=== PATIENT | female | born 1950 | race Two or more races ===

== ENCOUNTER 2022-09-01 16:40 | Inpatient (IN) | payer MEDICAID, MEDICARE ==
[~2022-09-01] VITALS: Ht 152.4 cm; Wt 66.3 kg
[2022-09-01] MEDS ORDERED: methylPREDNISolone SOD SUCC 125 MG/2 ML VIAL IV ONE (17:00)
[2022-09-01] MEDS ORDERED: ALBUTEROL SULFATE 2.5 MG/3 ML NEBU NEB ONE (17:00)
[2022-09-01] MEDS ORDERED: IPRATROPIUM BROMIDE 0.5 MG/2.5 ML NEBU NEB ONE (17:00)
[2022-09-01] MEDS ORDERED: MAGNESIUM SULFATE 2 GM in IV DEXTROSE 5% 100 ML IV ONE (17:00)
[2022-09-01] MEDS ORDERED: ALBUTEROL SULFATE 2.5 MG/3 ML NEBU ONE (17:01)
[2022-09-01] MEDS ORDERED: IPRATROPIUM BROMIDE 0.5 MG/2.5 ML NEBU ONE (17:02)
[2022-09-01 17:09] LABS: MEAN CORPUSCULAR HEMOGLOBIN 29.5 uug (24.7-32.8); MEAN CORPUSCULAR VOLUME 89.3 fL (75.5-95.3); PLATELET COUNT (AUTO) 282 K/uL (179-408)
[2022-09-01] MEDS ORDERED: MAGNESIUM SULFATE 1 GM/2 ML VIAL ONE (17:11)
[2022-09-01] MEDS ORDERED: MAGNESIUM SULFATE/D5W 100 ML ONE (17:12)
[2022-09-01] MEDS ORDERED: methylPREDNISolone SOD SUCC 125 MG/2 ML VIAL ONE (17:12)
[2022-09-01] MEDS ORDERED: ATOR40TA PO (17:21)
[2022-09-01] MEDS ORDERED: ALBU0.63 NEB (17:21)
[2022-09-01] MEDS ORDERED: AZITHROMYCIN IV 500 MG in IV DEXTROSE 5% 250 ML IV ONE (17:30)
[2022-09-01] MEDS ORDERED: CEFTRIAXONE 1 G in IV DEXTROSE 5% 50 ML IV ONE (17:30)
--- NOTE | 2022-09-01 17:36 | NUR ---
PT IS IN ROOM #2A. DR CONTI EVALUATED THE PT.
[2022-09-01] MEDS ORDERED: AZITHROMYCIN 500MG/ D5W 250ML IVPB **ER PYXIS ONLY IV ONE (17:57)
[2022-09-01] MEDS ORDERED: CEFTRIAXONE /D5W 50ML IVPB **ER PYXIS IV ONE (17:58)
[2022-09-01 18:15] LABS: BILIRUBIN,DIRECT 0.1 mg/dL (0.0-0.2); BILIRUBIN,TOTAL 0.2 mg/dL (0.2-1.0); CREATININE 0.9 mg/dL (0.6-1.3); POTASSIUM 3.7 mmol/L (3.5-5.1); TOTAL PROTEIN, SERUM 7.1 g/dL (6.4-8.2)
--- NOTE | 2022-09-01 19:34 | NUR ---
Patient Aox4, VSS. O2 Sat 94% on 2L of Oxygen via nasal cannula. Patient's daughter at bedside.
--- NOTE | 2022-09-01 19:45 | NUR ---
Called third floor to claims director report. RN not ready, waiting for call back.
--- NOTE | 2022-09-01 19:46 | NUR ---
Patient ambulated to the bathroom standby assist. Large yellow void. Tolerated well.
--- NOTE | 2022-09-01 20:44 | NUR ---
Report given to Destiny HILL
[2022-09-01] MEDS ORDERED: ALBUTEROL SULFATE 1.25 MG/3 ML NEBU NEB PRN (20:45)
[2022-09-01] MEDS ORDERED: REMEDY ESSENTIAL ZINC PASTE 113 GM TP PRN (20:45)
[2022-09-01] MEDS ORDERED: MAGNESIUM HYDROXIDE 30 ML LIQUID UDC PO PRN (20:45)
--- NOTE | 2022-09-01 20:59 | NUR ---
Patient ambulated to the bathroom 1x assist. Voided large urine.
[2022-09-01 21:15] VITALS: BP 139/74
--- NOTE | 2022-09-01 21:15 | NUR ---
Admitted a 72 years old female with Dx of COPD Exacerbation. Patient AAOx4. Mainly Hungarian speaking. Can understand and speak little Maori. 2 daughter present upon admission and translated for this nurse. Patient denies any pain. No complain of SOB at this time. On O2 at 2LPM via NC in place. O2 sat at 93%. Patient reported SOB with minimal exertion. Also noted with productive cough and able to expectorate thin phlegm. IV site on right FA and DELON intact and patent. NSR on tele with HR of 87/min. Routine admission care done. Plan of care initiated. Safety measure initiated and call light within reached. Continue to monitor.
--- NOTE | 2022-09-01 21:18 | NUR ---
Patient taken to third floor room 316 via gurney with personal belongings. Patient in stable condition, no signs of distress. Destiny RN aware of patients arrival.
[2022-09-01] MEDS: methylPREDNISolone SOD SUCC 40 MG/ML VIAL IV SCH (21:55)
[2022-09-01] MEDS: ENOXAPARIN SODIUM 40 MG/0.4 ML DISP.SYRIN SQ SCH (21:56)
[2022-09-01] MEDS: NICOTINE 14 MG/24HR PATCH TD SCH (22:12)
[2022-09-02 04:32] VITALS: BP 136/62
[2022-09-02] MEDS: ALBUTEROL SULFATE 1.25 MG/3 ML NEBU NEB PRN (04:39)
[2022-09-02] MEDS: IPRATROPIUM BROMIDE 0.5 MG/2.5 ML NEBU NEB PRN (04:39)
[2022-09-02] MEDS: methylPREDNISolone SOD SUCC 40 MG/ML VIAL IV SCH ×3 (05:06→21:05)
--- NOTE | 2022-09-02 05:55 | NUR ---
In no acute distress. Remains on O2 at 2LPM via NC. Breathing TX provided by RT this AM. NSR on tele with HR of 84/min. Needs attended to and met. Safety measure maintained and call light within reached.
[2022-09-02 06:57] LABS: HEMATOCRIT 36.2 % (31.2-41.9); MEAN CORPUSCULAR HEMOGLOBIN 29.4 uug (24.7-32.8); MEAN CORPUSCULAR VOLUME 88.3 fL (75.5-95.3); PLATELET COUNT (AUTO) 397 K/uL (179-408)
--- NOTE | 2022-09-02 08:00 | NUR ---
AWAKE ALERT AND ORIENTED X3 DENIES PAIN OR RESPIRATORY DISTRESS. CONTINUE WITH 02 AT 2L NC SATURATING 95%. SR ON MONITOR
[2022-09-02 08:47] LABS: CARBON DIOXIDE 25 mmol/L (21-32); CHLORIDE 103 mmol/L (98-107); GLUCOSE 161 mg/dL (74-106)
[2022-09-02 08:48] LABS: CHOLESTEROL 220 mg/dL (<200); HDL CHOLESTEROL 113 mg/dL (40-60); MAGNESIUM 2.2 mg/dL (1.8-2.4); PHOSPHOROUS 4.1 mg/dL (2.5-4.9); TRIGLYCERIDES 72 MG/DL (30-150); UREA NITROGEN, BLOOD 11 mg/dL (7-18)
[2022-09-02] MEDS: NICOTINE 14 MG/24HR PATCH TD SCH (09:13)
[2022-09-02] MEDS ORDERED: ALBU2.5V13 IH (09:27)
[2022-09-02] MEDS ORDERED: DIFL15OI3 TP (09:29)
[2022-09-02] MEDS ORDERED: ASPI81TA31 PO (09:31)
[2022-09-02] MEDS ORDERED: DICL50TA7 PO (09:32)
[2022-09-02] MEDS ORDERED: NICO-671 TD (09:38)
[2022-09-02 11:41] VITALS: BP 150/79
--- NOTE | 2022-09-02 13:00 | NUR ---
C/O SOB AND SEVERE WHEEZING BREATHING TX GIVEN ORDERED. OBSERVED
[2022-09-02] MEDS: ALBUTEROL SULFATE 1.25 MG/3 ML NEBU NEB SCH ×4 (13:33→23:28)
[2022-09-02] MEDS: IPRATROPIUM BROMIDE 0.5 MG/2.5 ML NEBU NEB SCH ×4 (13:33→23:28)
[2022-09-02 15:34] VITALS: BP 131/66
--- NOTE | 2022-09-02 15:48 | NUR ---
RESTING COMFORTABLY IN BED STILL WITH IN AND OUT SOB AND WHEEZING CONTINUE WITH BREATHING TX ORDERED
[2022-09-02] MEDS: AZITHROMYCIN IV 500 MG in IV DEXTROSE 5% 250 ML IV SCH (16:29)
[2022-09-02] MEDS: ONDANSETRON 4 MG/2 ML VIAL IV PRN (17:30)
[2022-09-02] MEDS: CEFTRIAXONE 1 G in IV DEXTROSE 5% 50 ML IV SCH (17:30)
[2022-09-02] MEDS ORDERED: CEFTRIAXONE 1 G in IV DEXTROSE 5% 50 ML IV SCH (18:00)
--- NOTE | 2022-09-02 19:30 | NUR ---
Received patient lying in bed. AAOx4. Family at bedside. Denies any pain or SOB. O2 at 2LPM via NC in place. NSR on tele with HR of 92/min. IV site on right FA intact and patent. Safety measure initiated and call light within reached.
[2022-09-02 20:00] VITALS: BP 131/78
[2022-09-02] MEDS: ENOXAPARIN SODIUM 40 MG/0.4 ML DISP.SYRIN SQ SCH (21:05)
[2022-09-02] MEDS: MELATONIN 3 MG TABLET PO SCH (21:05)
[2022-09-03] VITALS: BP 155/75
[2022-09-03] MEDS: IPRATROPIUM BROMIDE 0.5 MG/2.5 ML NEBU NEB SCH ×6 (02:37→23:30)
[2022-09-03] MEDS: ALBUTEROL SULFATE 1.25 MG/3 ML NEBU NEB SCH ×6 (02:37→23:30)
[2022-09-03 04:00] VITALS: BP 120/68
[2022-09-03] MEDS: methylPREDNISolone SOD SUCC 40 MG/ML VIAL IV SCH (05:08)
--- NOTE | 2022-09-03 05:51 | NUR ---
In no acute distress. O2 at 2LPM via NC. NSR on tele with HR of 88/min. Needs attended to and met. Safety measure maintained and call light within reached.
[2022-09-03 06:24] LABS: HEMATOCRIT 34.7 % (31.2-41.9); MEAN CORPUSCULAR HEMOGLOBIN 29.3 uug (24.7-32.8); MEAN CORPUSCULAR VOLUME 89.2 fL (75.5-95.3); PLATELET COUNT (AUTO) 386 K/uL (179-408)
[2022-09-03 06:27] LABS: CREATININE 0.9 mg/dL (0.6-1.3); MAGNESIUM 2.2 mg/dL (1.8-2.4); PHOSPHOROUS 4.2 mg/dL (2.5-4.9); POTASSIUM 4.4 mmol/L (3.5-5.1)
[2022-09-03] MEDS: NICOTINE 14 MG/24HR PATCH TD SCH (09:26)
[2022-09-03 09:27] VITALS: BP 129/75
[2022-09-03 11:11] VITALS: BP 127/53
[2022-09-03] MEDS: methylPREDNISolone SOD SUCC 125 MG/2 ML VIAL IV SCH ×2 (14:00→21:50)
[2022-09-03] MEDS ORDERED: methylPREDNISolone SOD SUCC 40 MG/ML VIAL IV SCH (14:00)
[2022-09-03 15:08] VITALS: BP 132/67
[2022-09-03] MEDS: AZITHROMYCIN IV 500 MG in IV DEXTROSE 5% 250 ML IV SCH (16:41)
[2022-09-03] MEDS: CEFTRIAXONE 1 G in IV DEXTROSE 5% 50 ML IV SCH (18:13)
--- NOTE | 2022-09-03 19:05 | NUR ---
SHIFT NOTE: RECEIVED REPORT FROM AM NURSE JADA PT IS ALERT AND ORIENTED X 4 BUT VIETNAMESE SPEAKING MEDICATION GIVEN ORDERED NO ADVERSE REACTION NOTED. LAKSHMI FROM LAB CALLED STATED"PT BLOOD CULTURE FROM AEROBIC TUBE IS GRAM POSITIVE COCCI WITH CLUSTERS INFORMED DR CONTI WHO ORDERED IT AND HE SAID IT IS NOT HIS PATIENT SO CALLED SALOMÓN DENTON DELI MANAGER ABOUT BLOOD CULTURE SHE SAID OKAY. FAMILY CONCERNED WHEN TAKING PATIENT TO BATHROOM AFTER COMING BACK PATIENT HAS DISTRESS WITH BREATHING INFORMED BERTIN SHE KEEP PATIENT IN BED. INFORMED FAMILY MEMBERS ABOUT WHAT DELI MANAGER SAID THEY SAID OKAY
--- NOTE | 2022-09-03 19:10 | NUR ---
WILL ENDORSE TO NIGHT NURSE NO SIGNS OF DISTRESS NOTED FALL AND SAFETY MAINTAINED THROUGHOUT SHIFT FAMILY AT BEDSIDE.
[2022-09-03 20:00] VITALS: BP 132/84
[2022-09-03] MEDS: MELATONIN 3 MG TABLET PO SCH (20:44)
[2022-09-03] MEDS: ACETAMINOPHEN 325 MG TABLET PO PRN (20:44)
[2022-09-03] MEDS: ENOXAPARIN SODIUM 40 MG/0.4 ML DISP.SYRIN SQ SCH (20:45)
[2022-09-04] VITALS: BP 150/75
[2022-09-04] MEDS: ALBUTEROL SULFATE 1.25 MG/3 ML NEBU NEB SCH ×6 (03:30→22:15)
[2022-09-04] MEDS: IPRATROPIUM BROMIDE 0.5 MG/2.5 ML NEBU NEB SCH ×6 (03:30→22:15)
[2022-09-04 04:00] VITALS: BP 159/78
[2022-09-04] MEDS: ACETAMINOPHEN 325 MG TABLET PO PRN ×3 (04:34→22:11)
[2022-09-04] MEDS: IPRATROPIUM BROMIDE 0.5 MG/2.5 ML NEBU NEB PRN (04:58)
[2022-09-04] MEDS: ALBUTEROL SULFATE 1.25 MG/3 ML NEBU NEB PRN (04:58)
[2022-09-04] MEDS: methylPREDNISolone SOD SUCC 125 MG/2 ML VIAL IV SCH ×3 (06:10→23:34)
[2022-09-04 06:19] LABS: HEMATOCRIT 36.2 % (31.2-41.9); MEAN CORPUSCULAR HEMOGLOBIN 28.9 uug (24.7-32.8); MEAN CORPUSCULAR VOLUME 89.3 fL (75.5-95.3); PLATELET COUNT (AUTO) 405 K/uL (179-408)
[2022-09-04 06:38] LABS: CREATININE 0.8 mg/dL (0.6-1.3); MAGNESIUM 2.5 mg/dL (1.8-2.4); PHOSPHOROUS 4.3 mg/dL (2.5-4.9); POTASSIUM 4.3 mmol/L (3.5-5.1)
--- NOTE | 2022-09-04 08:00 | NUR ---
PATIENT RESTING COMFORTABLY ON SEMI FOWLERS POSITION WITH 02 AT 4L, O2 TITRATED TO 2L AND CLOSELY MONITORED. SR ON MONITOR. DENIES PAIN OR RESP DISTRESS. OBSERVED
--- NOTE | 2022-09-04 08:02 | NUR ---
Patient night started very difficult because of SOB. Patient have been feeling better by repositioning, and adjust oxygen. No respiratory distress observed. Will continue to monitor patient for safety.
[2022-09-04] MEDS: NICOTINE 14 MG/24HR PATCH TD SCH (08:13)
[2022-09-04 09:00] VITALS: BP 155/80
--- NOTE | 2022-09-04 09:00 | NUR ---
PLACED PATIENT ON SITTING POSITION CONTINUE 0N 2L NC TOLERATING WELL NO SS OF RESPIRATORY DISTRESS. BREATHING TX GIVEN BY RT ORDERED. O2 SAT FROM 88-95%. ST ON MONITORING
--- NOTE | 2022-09-04 12:04 | NUR ---
PATIENT TOLERATING O2 AT 2L NC SATURATING 96% ON SEMI FOWLERS POSITION. REMAINS SR/ST ON MONITOR
[2022-09-04] MEDS: ONDANSETRON 4 MG/2 ML VIAL IV PRN (14:36)
--- NOTE | 2022-09-04 15:54 | NUR ---
WHEEZING CONSTANTLY, ASSISTED UP ON CHAIR FOR COMFORT CONTINUE WITH HHN TX ORDERED. CLOSELY MONITORED
[2022-09-04 16:00] VITALS: BP 142/80
[2022-09-04] MEDS: AZITHROMYCIN IV 500 MG in IV DEXTROSE 5% 250 ML IV SCH (17:12)
[2022-09-04] MEDS: CEFTRIAXONE 1 G in IV DEXTROSE 5% 50 ML IV SCH (18:06)
[2022-09-04 20:00] VITALS: BP 149/77
[2022-09-04] MEDS: MELATONIN 3 MG TABLET PO SCH (22:11)
[2022-09-04] MEDS: ENOXAPARIN SODIUM 40 MG/0.4 ML DISP.SYRIN SQ SCH (22:44)
[2022-09-05] MEDS: ALBUTEROL SULFATE 1.25 MG/3 ML NEBU NEB SCH ×6 (03:30→23:30)
[2022-09-05] MEDS: IPRATROPIUM BROMIDE 0.5 MG/2.5 ML NEBU NEB SCH ×6 (03:30→23:30)
[2022-09-05] MEDS: methylPREDNISolone SOD SUCC 125 MG/2 ML VIAL IV SCH ×3 (05:48→17:32)
[2022-09-05 06:07] VITALS: BP 145/67
--- NOTE | 2022-09-05 07:54 | NUR ---
Patient AAOX4 had a better night last night. She slept for a good amount of hours. However, she is still wheezing, and very hard to find a comfortable position due to SOB.However, no acute distress respiration observed. Patient is very nice and get along very well with staff. Will continue to monitor patient for safety.
--- NOTE | 2022-09-05 08:00 | NUR ---
Received pt. awake on bed on sitting position, with O2 inhalation at 2lpm via nasal cannula saturating at 95-96%. SR on tele monitor. Pt. IV site on right hand g.22, intact and patent. Complaining shortness of breath with wheezing, nebulization provided by RT. Closely monitored.
[2022-09-05] MEDS: NICOTINE 14 MG/24HR PATCH TD SCH (08:23)
[2022-09-05 08:30] VITALS: BP 154/96
--- NOTE | 2022-09-05 09:30 | NUR ---
Patient still complaining shortness of breath, positioned on high back rest. ABG ordered and done, PRN breathing treatment done by RT. Keep comfortable. Closely monitored
[2022-09-05 09:55] LABS: ABG BASE EXCESS 0.5 mmol/L; ABG HCO3 26.5 mmol/L; ABG PCO2 48.2 mmHg (35.0-45.0); ABG PH 7.358 (7.350-7.450); ABG PO2 64.9 mmHg (75.0-100.0); ABG SITE LEFT RADIAL; ABG TOTAL HEMOGLOBIN 12.8 G/dL (12.0-16.0); COHb 0.6 % (0.5-1.5); MetHb 0.3 % (0.0-1.5); O2Hb 92.3 % (94.0-97.0); VENT MODE Nasal Cannula
[2022-09-05] MEDS: IPRATROPIUM BROMIDE 0.5 MG/2.5 ML NEBU NEB PRN (10:05)
[2022-09-05] MEDS: ALBUTEROL SULFATE 1.25 MG/3 ML NEBU NEB PRN (10:05)
[2022-09-05] MEDS: ACETAMINOPHEN 325 MG TABLET PO PRN ×2 (10:11→22:10)
--- NOTE | 2022-09-05 11:19 | NUR ---
RT Q4 MED NOT GIVEN AT THIS TIME, PRN TX WAS GIVEN AT 1005 DUE TO SOB AND DISTRESS. RN AWARE. ABG WAS DONE PRE TX. RESULTS REPORTED TO RN.
--- NOTE | 2022-09-05 12:20 | NUR ---
Seen and examined by Gaviota Rivera NP with orders made and carried out. Chest xray done at bedside, continue breathing treatments and IV steroids. Closely monitored patient
[2022-09-05 12:21] VITALS: BP 132/57
--- NOTE | 2022-09-05 14:04 | NUR ---
Seen patient asleep, well rested. No signs of distress, saturation at 94%. SR on tele monitor 88bpm. Observed accordingly
[2022-09-05] MEDS: BUDESONIDE 0.5 MG/2 ML NEBU NEB SCH ×2 (14:22→22:32)
[2022-09-05 15:32] VITALS: BP 131/74
[2022-09-05] MEDS: AZITHROMYCIN IV 500 MG in IV DEXTROSE 5% 250 ML IV SCH (16:15)
[2022-09-05] MEDS: GLUCERNA SHAKE 237 ML CAN PO SCH (16:29)
[2022-09-05] MEDS: CEFTRIAXONE 1 G in IV DEXTROSE 5% 50 ML IV SCH (17:33)
[2022-09-05 20:00] VITALS: BP 169/87
[2022-09-05] MEDS: MELATONIN 3 MG TABLET PO SCH (22:10)
[2022-09-05] MEDS: ENOXAPARIN SODIUM 40 MG/0.4 ML DISP.SYRIN SQ SCH (22:11)
[2022-09-06] VITALS: BP 147/72
[2022-09-06] MEDS: IPRATROPIUM BROMIDE 0.5 MG/2.5 ML NEBU NEB SCH ×6 (03:30→23:36)
[2022-09-06] MEDS: ALBUTEROL SULFATE 1.25 MG/3 ML NEBU NEB SCH ×6 (03:30→23:36)
[2022-09-06 04:00] VITALS: BP 154/82
[2022-09-06] MEDS: methylPREDNISolone SOD SUCC 125 MG/2 ML VIAL IV SCH ×5 (05:43→23:08)
[2022-09-06] MEDS: IPRATROPIUM BROMIDE 0.5 MG/2.5 ML NEBU NEB PRN (05:55)
[2022-09-06] MEDS: ALBUTEROL SULFATE 1.25 MG/3 ML NEBU NEB PRN (05:55)
[2022-09-06] MEDS: ACETAMINOPHEN 325 MG TABLET PO PRN ×2 (06:44→22:04)
--- NOTE | 2022-09-06 06:45 | NUR ---
Patient is AAOX4 still complaining about SOB. However, patient stated that she is feeling better. Breathing treatment administered to patient. She is still complaining about flank pain. Tylenol have been administered. She is now resting in her room. Will continue to monitor patient for safety.
[2022-09-06] MEDS: BUDESONIDE 0.5 MG/2 ML NEBU NEB SCH ×2 (08:08→20:06)
[2022-09-06] MEDS: NICOTINE 14 MG/24HR PATCH TD SCH (08:37)
[2022-09-06] MEDS: GLUCERNA SHAKE 237 ML CAN PO SCH ×2 (08:38→16:30)
--- NOTE | 2022-09-06 09:37 | NUR ---
PATIENT SEEN AND EXAMINED BY SALOMÓN DENTON WITH NEW ORDERS AND NOTED
--- NOTE | 2022-09-06 10:00 | NUR ---
DR NAILS HERE AND SEEN PATIENT WITH NO NEW ORDERS AT THIS TIME
--- NOTE | 2022-09-06 10:28 | NUR ---
RECEIVED RESULT OF THE CHEST AND LEFT RIB XRAY =ACUTE/SUBACUTE FRACTURES APPEARING RIB FRACTURES INVOLVING THE LEFT FIFTH/SIXTH/SEVENTH AND EIGHT RIBS RECEIVED FROM THE [facility] AND RELAYED TO DR SALOMÓN DENTON WITH NO NEW ORDERS AT THIS TIME.
[2022-09-06 10:39] LABS: HEMATOCRIT 38.9 % (31.2-41.9); MEAN CORPUSCULAR HEMOGLOBIN 28.5 uug (24.7-32.8); MEAN CORPUSCULAR VOLUME 89.7 fL (75.5-95.3); PLATELET COUNT (AUTO) 433 K/uL (179-408)
[2022-09-06 11:16] VITALS: BP 123/72
[2022-09-06 11:18] VITALS: BP 139/81
[2022-09-06 11:27] LABS: CARBON DIOXIDE 30 mmol/L (21-32); CHLORIDE 101 mmol/L (98-107); CREATININE 0.7 mg/dL (0.6-1.3); GLUCOSE 151 mg/dL (74-106); POTASSIUM 3.8 mmol/L (3.5-5.1); UREA NITROGEN, BLOOD 35 mg/dL (7-18)
[2022-09-06 15:53] VITALS: BP 107/80
--- NOTE | 2022-09-06 18:00 | NUR ---
REMAIN ON ATB ORDERED WITH NO ADVERSE OR ALLERGIC REACTIONS AT THIS TIME WILL CONTINUE TO OBSERVE.
[2022-09-06] MEDS: CEFTRIAXONE 1 G in IV DEXTROSE 5% 50 ML IV SCH (18:01)
[2022-09-06 20:34] VITALS: BP 163/84
[2022-09-06] MEDS: MELATONIN 3 MG TABLET PO SCH (22:04)
[2022-09-06] MEDS: ATORVASTATIN 40 MG TABLET PO SCH (22:05)
[2022-09-06] MEDS: ENOXAPARIN SODIUM 40 MG/0.4 ML DISP.SYRIN SQ SCH (22:06)
[2022-09-07 00:32] VITALS: BP 145/86
[2022-09-07] MEDS: ACETAMINOPHEN 325 MG TABLET PO PRN ×2 (01:01→13:21)
[2022-09-07] MEDS: IPRATROPIUM BROMIDE 0.5 MG/2.5 ML NEBU NEB SCH ×5 (03:55→20:10)
[2022-09-07] MEDS: ALBUTEROL SULFATE 1.25 MG/3 ML NEBU NEB SCH ×3 (03:55→11:33)
[2022-09-07 04:05] VITALS: BP 154/73
--- NOTE | 2022-09-07 06:30 | NUR ---
Patient is stable AAOX4, complaining about flank pain and also she has been coughing. Note sent to doctor for follow up. Tylenol have been administered during night for pain. She is now sleeping at night. Will continue to monitor patient for safety.
[2022-09-07] MEDS: methylPREDNISolone SOD SUCC 125 MG/2 ML VIAL IV SCH ×3 (06:41→22:01)
[2022-09-07 07:11] LABS: HEMATOCRIT 37.2 % (31.2-41.9); MEAN CORPUSCULAR HEMOGLOBIN 28.8 uug (24.7-32.8); MEAN CORPUSCULAR VOLUME 88.9 fL (75.5-95.3); PLATELET COUNT (AUTO) 413 K/uL (179-408)
[2022-09-07 07:58] LABS: CREATININE 0.7 mg/dL (0.6-1.3); MAGNESIUM 2.3 mg/dL (1.8-2.4); PHOSPHOROUS 3.9 mg/dL (2.5-4.9); POTASSIUM 4.3 mmol/L (3.5-5.1)
[2022-09-07] MEDS: GLUCERNA SHAKE 237 ML CAN PO SCH ×2 (08:00→17:00)
[2022-09-07] MEDS: BUDESONIDE 0.5 MG/2 ML NEBU NEB SCH ×2 (08:03→20:10)
[2022-09-07] MEDS: NICOTINE 14 MG/24HR PATCH TD SCH (08:30)
[2022-09-07] MEDS: ASPIRIN 81 MG TAB.CHEW PO SCH (08:30)
--- NOTE | 2022-09-07 09:00 | NUR ---
DR NAILS HERE TO SEE PATIENT WITH NEW ORDERS. PATIENT IS ALERT AND ORIENTED WITH LANGUAGE BARRIERS ABLE TO MAKE NEEDS KNOWN DENIES DISCOMFORTS O2 IN PROGRESS ORDERED CALL LIGHT AND PERSONAL BELONGINGS ARE WITHIN EASY REACH WILL CONTINUE TO OBSERVE.
[2022-09-07] MEDS ORDERED: GUAIFENESIN/DEXTROMETHORPHAN 5 ML UDC PO PRN (10:00)
--- NOTE | 2022-09-07 10:47 | NUR ---
PATIENT SEEN AND EXAMINED BY DR MOE RICHARDS WITH NEW ORDERS AND NOTED.
[2022-09-07 11:30] VITALS: BP 154/83
--- NOTE | 2022-09-07 13:21 | NUR ---
PATIENT COMPLAINING C/ GENERALISED PAIN AND COUGH MEDICATED WITH ROBITUSSIN AND TYLENOL ORDERED MADE COMFORTABLE AND WILL CONTINUE TO OBSERVE.
[2022-09-07] MEDS: ALBUTEROL SULFATE 2.5 MG/3 ML NEBU NEB SCH ×2 (13:30→20:10)
[2022-09-07 16:00] VITALS: BP 158/86
[2022-09-07] MEDS: CEFTRIAXONE 1 G in IV DEXTROSE 5% 50 ML IV SCH (17:27)
--- NOTE | 2022-09-07 18:00 | NUR ---
IV SITE INFILTERATED REINSERTED TO HER LEFT FOREARM WITH ONE ATTEMPT IV ATB INFUSED ORDERED WILL CONTINUE TO OBSERVE.
[2022-09-07 20:00] VITALS: BP 164/95
[2022-09-07] MEDS: ENOXAPARIN SODIUM 40 MG/0.4 ML DISP.SYRIN SQ SCH (20:28)
[2022-09-07] MEDS: MELATONIN 3 MG TABLET PO SCH (20:30)
[2022-09-07] MEDS: ATORVASTATIN 40 MG TABLET PO SCH (20:30)
[2022-09-08] VITALS: BP 137/78
[2022-09-08] MEDS: IPRATROPIUM BROMIDE 0.5 MG/2.5 ML NEBU NEB SCH ×4 (00:36→21:44)
[2022-09-08] MEDS: ALBUTEROL SULFATE 2.5 MG/3 ML NEBU NEB SCH ×4 (00:36→21:48)
[2022-09-08 01:49] VITALS: BP 137/78
[2022-09-08 04:30] VITALS: BP 146/81
[2022-09-08] MEDS: methylPREDNISolone SOD SUCC 125 MG/2 ML VIAL IV SCH ×2 (06:05→21:01)
--- NOTE | 2022-09-08 07:09 | NUR ---
Slept well throughout the night, easy to arouse alert and oriented x3. No acute distress noted. Sinus rhythm on tele. Needs attended.
[2022-09-08 07:25] LABS: HEMATOCRIT 36.8 % (31.2-41.9); MEAN CORPUSCULAR HEMOGLOBIN 29.1 uug (24.7-32.8); MEAN CORPUSCULAR VOLUME 89.4 fL (75.5-95.3); PLATELET COUNT (AUTO) 406 K/uL (179-408)
--- NOTE | 2022-09-08 07:25 | NUR ---
AWAKE ALERT AND ORIENTED ON O2 AT 2L/M BY NASAL CANULA STILL SHOWING SIGNS OF SHORTNESS OF BREATH WITH EXERTION TELE IS SR WITH NO ECTOPY CALL LIGHT AND PERSONAL BELONGINGS ARE WITHIN EASY REACH AT THIS TIME WILL CONTINUE TO OBSERVE.
[2022-09-08] MEDS: BUDESONIDE 0.5 MG/2 ML NEBU NEB SCH ×2 (07:36→21:45)
[2022-09-08 07:43] LABS: CREATININE 0.7 mg/dL (0.6-1.3); POTASSIUM 4.3 mmol/L (3.5-5.1)
[2022-09-08] MEDS: GLUCERNA SHAKE 237 ML CAN PO SCH ×2 (08:00→16:34)
[2022-09-08] MEDS: NICOTINE 14 MG/24HR PATCH TD SCH (09:22)
[2022-09-08] MEDS: ASPIRIN 81 MG TAB.CHEW PO SCH (09:29)
[2022-09-08] MEDS: LIDOCAINE 5% PATCH TD SCH (11:14)
[2022-09-08 11:43] VITALS: BP 153/84
--- NOTE | 2022-09-08 13:30 | NUR ---
SEEN BY MOE RICHARDS WITH NEW ORDERS NOTED WITH LESS WHEEZING TODAY MADE COMFORTABLE
[2022-09-08 15:45] VITALS: BP 157/62
[2022-09-08] MEDS: CEFTRIAXONE 1 G in IV DEXTROSE 5% 50 ML IV SCH (17:25)
--- NOTE | 2022-09-08 18:00 | NUR ---
CONTINUE ON IV ATB ORDERED WITH NO ADVERSE OR ALLERGIC REACTIONS MADE COMFORTABLE WILL OBSERVE.
[2022-09-08 20:00] VITALS: BP 129/86
[2022-09-08] MEDS: MELATONIN 3 MG TABLET PO SCH (20:35)
[2022-09-08] MEDS: ATORVASTATIN 40 MG TABLET PO SCH (20:35)
[2022-09-08] MEDS: ENOXAPARIN SODIUM 40 MG/0.4 ML DISP.SYRIN SQ SCH (20:35)
[2022-09-09] MEDS: ALBUTEROL SULFATE 2.5 MG/3 ML NEBU NEB SCH ×4 (02:17→19:47)
[2022-09-09] MEDS: IPRATROPIUM BROMIDE 0.5 MG/2.5 ML NEBU NEB SCH ×4 (02:17→19:47)
[2022-09-09 05:07] VITALS: BP 129/86
[2022-09-09 07:07] LABS: HEMATOCRIT 35.3 % (31.2-41.9); MEAN CORPUSCULAR VOLUME 89.4 fL (75.5-95.3); PLATELET COUNT (AUTO) 375 K/uL (179-408)
[2022-09-09 07:14] LABS: CREATININE 0.7 mg/dL (0.6-1.3); POTASSIUM 4.2 mmol/L (3.5-5.1)
[2022-09-09] MEDS: BUDESONIDE 0.5 MG/2 ML NEBU NEB SCH ×2 (07:43→19:47)
[2022-09-09] MEDS: LIDOCAINE 5% PATCH TD SCH (08:23)
[2022-09-09] MEDS: NICOTINE 14 MG/24HR PATCH TD SCH (08:23)
[2022-09-09] MEDS: GLUCERNA SHAKE 237 ML CAN PO SCH ×2 (08:24→17:02)
[2022-09-09] MEDS: ASPIRIN 81 MG TAB.CHEW PO SCH (08:24)
[2022-09-09] MEDS: methylPREDNISolone SOD SUCC 125 MG/2 ML VIAL IV SCH ×2 (08:25→20:56)
[2022-09-09 11:10] VITALS: BP 143/71
[2022-09-09 15:23] VITALS: BP 90/53
[2022-09-09 20:00] VITALS: BP 143/77
[2022-09-09] MEDS: ATORVASTATIN 40 MG TABLET PO SCH (20:55)
[2022-09-09] MEDS: MELATONIN 3 MG TABLET PO SCH (20:55)
[2022-09-09] MEDS: ENOXAPARIN SODIUM 40 MG/0.4 ML DISP.SYRIN SQ SCH (20:55)
--- NOTE | 2022-09-09 21:30 | NUR ---
OXYGEN WAS DELIVERED FOR PATIENTS DISCHARGE IN AM. PLACED IN PATIENTS ROOM. FANCY SEWER NOTIFIED.
[2022-09-09] MEDS: MAG HYDROX/AL HYDROX/SIMETH 30 ML LIQUID UDC PO PRN (22:04)
[2022-09-10] MEDS: ALBUTEROL SULFATE 2.5 MG/3 ML NEBU NEB SCH ×3 (01:30→13:51)
[2022-09-10] MEDS: IPRATROPIUM BROMIDE 0.5 MG/2.5 ML NEBU NEB SCH ×3 (01:30→13:51)
[2022-09-10 03:38] VITALS: BP 129/59
--- NOTE | 2022-09-10 06:13 | NUR ---
PATIENT TAKEN OFF O2 @ 0600 , PT ON ROOM AIR , FOR BASE LINE ABG, SO SHE MAY GO HOME; NURSE ADAIR NOTIFIED . Sarah SHEPARD RCP Addendum: 09/10/22 at 0615 by ANDRÉS SHEPARD RT Amended: Links added.
[2022-09-10 06:48] LABS: HEMATOCRIT 36.2 % (31.2-41.9); MEAN CORPUSCULAR HEMOGLOBIN 28.9 uug (24.7-32.8); PLATELET COUNT (AUTO) 408 K/uL (179-408)
[2022-09-10] MEDS: BUDESONIDE 0.5 MG/2 ML NEBU NEB SCH (07:18)
[2022-09-10 07:30] LABS: CREATININE 0.7 mg/dL (0.6-1.3); POTASSIUM 4.2 mmol/L (3.5-5.1)
[2022-09-10] MEDS: MAG HYDROX/AL HYDROX/SIMETH 30 ML LIQUID UDC PO PRN (07:54)
[2022-09-10] MEDS: ASPIRIN 81 MG TAB.CHEW PO SCH (08:01)
[2022-09-10] MEDS: NICOTINE 14 MG/24HR PATCH TD SCH (08:01)
[2022-09-10] MEDS: GLUCERNA SHAKE 237 ML CAN PO SCH (08:01)
[2022-09-10] MEDS: LIDOCAINE 5% PATCH TD SCH (08:01)
[2022-09-10] MEDS: methylPREDNISolone SOD SUCC 125 MG/2 ML VIAL IV SCH (08:03)
[2022-09-10 10:07] LABS: ABG BASE EXCESS 4.1 mmol/L; ABG HCO3 26.6 mmol/L; ABG PCO2 33.1 mmHg (35.0-45.0); ABG PH 7.523 (7.350-7.450); ABG PO2 53.3 mmHg (75.0-100.0); ABG SITE RIGHT BRACHIAL; ABG TOTAL HEMOGLOBIN 12.6 G/dL (12.0-16.0); COHb 0.5 % (0.5-1.5); MetHb 0.3 % (0.0-1.5); O2Hb 90.1 % (94.0-97.0); VENT MODE ROOM AIR
[2022-09-10] MEDS ORDERED: LIDO30AD10 TD (10:37)
[2022-09-10] MEDS ORDERED: ALBU1.25 NEB (10:37)
[2022-09-10] MEDS ORDERED: ALBU2.5V7 NEB (10:37)
[2022-09-10] MEDS ORDERED: METH4TAB3 PO (10:37)
[2022-09-10] MEDS ORDERED: FLUT1DIS27 INH (10:37)
[2022-09-10] MEDS ORDERED: IPRA0.2S6 NEB ×2 (10:37)
[2022-09-10] MEDS ORDERED: BUDE0.5A NEB (10:37)
[2022-09-10] MEDS ORDERED: FAMO-132 PO (11:04)
[2022-09-10 12:00] VITALS: BP 123/58
--- NOTE | 2022-09-10 15:55 | NUR ---
dc orders received noted and carried out,dc heplock per md orders,dc instruction and education given to the pt and her family pt left the facility via private car in stable condition
[2022-09-10] MEDS ORDERED: methylPREDNISolone SOD SUCC 125 MG/2 ML VIAL IV SCH (21:00)
== END 2022-09-10 15:50 | disposition home health service (06) | DRG 140 ==
LOC: ER 16:40 → TELE3 20:51 → MEDSURG3 09-08 11:06
PROVIDERS: ADMIT Nurse Practitioner Acute Care; ATTEND Nurse Practitioner Acute Care
DX: J43.2 Centrilobular emphysema (principal); J96.01 Acute respiratory failure with hypoxia; J96.02 Acute respiratory failure with hypercapnia; E44.1 Mild protein-calorie malnutrition; S22.42XA Multiple fractures of ribs, left side, initial encounter for closed fracture; F17.210 Nicotine dependence, cigarettes, uncomplicated; J18.9 Pneumonia, unspecified organism; R91.1 Solitary pulmonary nodule; K44.9 Diaphragmatic hernia without obstruction or gangrene; S27.9XXA Injury of unspecified intrathoracic organ, initial encounter; W19.XXXA Unspecified fall, initial encounter; Y92.89 Other specified places as the place of occurrence of the external cause; Z80.3 Family history of malignant neoplasm of breast; E78.00 Pure hypercholesterolemia, unspecified; D72.829 Elevated white blood cell count, unspecified; R73.9 Hyperglycemia, unspecified; R53.83 Other fatigue; Z20.822 Contact with and (suspected) exposure to COVID-19; R42 Dizziness and giddiness
CPT/HCPCS: 36415; 36600; 71045; 71101; 71250; 82803; 83735; 84100; 84484; 85025; 87040; 93005; 94640; 94664; 94760; A4663; G0378; J0456; J0696; J1650; J2405; J2920; J2930; J3475; J3590; J7050